=== PATIENT | male | born 1965 ===

== ENCOUNTER 2019-07-14 21:19 | Inpatient (IN) ==
[2019-07-14] MEDS ORDERED: GLUCAGON 1 MG VIAL IM PRN (22:58)
[2019-07-14] MEDS ORDERED: DEXTROSE 10% 250 ML BAG IV PRN (22:58)
[2019-07-14] MEDS ORDERED: ACETAMINOPHEN 325 MG TABLET PO PRN (22:58)
[2019-07-14] MEDS ORDERED: ONDANSETRON 4 MG/2 ML VIAL IV PRN (22:58)
[2019-07-14] MEDS ORDERED: guaiFENesin/CODEINE 5 ML LIQUID PO PRN (23:56)
[2019-07-14] MEDS ORDERED: HYDROCORTISONE 1% CREAM 28 GM TUBE TOP PRN (23:56)
[2019-07-14] MEDS ORDERED: CYCLOBENZAPRINE 10 MG TABLET PO PRN (23:56)
[2019-07-14] MEDS ORDERED: MAGNESIUM HYDROXIDE SUSP 30 ML UDCUP PO PRN (23:56)
[2019-07-14] MEDS ORDERED: FLUTICASONE 50 MCG NASAL SPRAY 16 GM BOTTLE BOTH NARES PRN (23:56)
[2019-07-14] MEDS ORDERED: POLYETHYLENE GLYCOL POWDER 17 GM PACK PO PRN (23:56)
[2019-07-15] MEDS ORDERED: ENOXAPARIN 40 MG/0.4 ML SYRINGE SUBCUT SCH (01:00)
[2019-07-15] MEDS: ALBUTEROL INHALER 18 GM INH SCH ×4 (02:20→21:53)
[2019-07-15 06:24] LABS: Basophils % 0.3 % (0.0-0.8); Hematocrit 44.6 VOL% (42.0-52.0); Hemoglobin 14.9 GM/DL (14.0-18.0); Immature Granulocytes % 0.3 %; Immature Granulocytes Absolute 0.02 #; Mean Corpuscular HGB Conc 33.4 GM/DL (32-36); Mean Corpuscular Volume 82.4 FL (87-102); Mean Platelet Volume 9.1 FL (9.6-12.0); Neutrophils % 80.4 % (38.7-73.9); Platelet Count 248 T/CUMM (130-400); Red Blood Count 5.41 MC/CUMM (3.8-5.5); Red Cell Distribution Width 13.4 % (9.3-17.3); White Blood Count 7.1 T/CUMM (4-12)
[2019-07-15 06:52] LABS: Albumin 3.2 G/DL (3.4-5.0); Bilirubin,Total 0.6 MG/DL (0.2-1.0); Calcium 8.6 MG/DL (8.5-10.1); Osmolality,Calculated 252.4 MOS/KG (273-304); Total Protein 8.3 G/DL (6.4-8.3)
[2019-07-15 06:55] LABS: ABG Base Excess -1.4 MMOL/L (-2.5-2.5); ABG HCO3 23.2 MMOL/L (20-26); ABG Oxygen Saturation 96.7 % (95-100); ABG PCO2 31.5 MM HG (35-48); ABG PH 7.444 (7.35-7.45); ABG PO2 87.1 MM HG (80-95); ABG TCO2 18.6 MMOL/L (23-27); Allen Test Positive
[2019-07-15 07:15] LABS: Band Neutrophils 4 % (0-10); Eosinophils 1 % (0-10); Lymphocytes 12 % (20-55); Platelet Estimate Normal; Segmented Neutrophils 78 % (50-85); Total Cells Counted 100
[2019-07-15 07:16] LABS: Hypochromasia Slight
[2019-07-15 07:49] LABS: Ferritin 2165.8 ng/ml (26-388)
[2019-07-15] MEDS: INSULIN REGULAR 100 UNIT/ML SUBCUT SCH ×4 (08:22→21:57)
[2019-07-15] MEDS: LUBIPROSTONE 24 MCG CAPSULE PO SCH ×2 (08:22→21:54)
[2019-07-15] MEDS: MONTELUKAST 10 MG TABLET PO SCH (08:23)
[2019-07-15] MEDS: HYDROXYCHLOROQUINE 200 MG TABLET PO SCH ×2 (08:23→21:54)
[2019-07-15] MEDS: CALCIUM (CARBONATE)/VITAMIN D 600 MG-400 UNIT TABLET PO SCH ×2 (08:23→21:57)
[2019-07-15] MEDS: ASPIRIN EC 81 MG TABLET PO SCH (08:25)
[2019-07-15] MEDS: ZINC SULFATE 220 MG CAPSULE PO SCH (08:25)
[2019-07-15] MEDS: AZELASTINE NASAL 137 MCG/SPRAY 30 ML BOTTLE BOTH NARES SCH (08:25)
[2019-07-15] MEDS: lisinopriL 5 MG TABLET PO SCH (08:25)
[2019-07-15] MEDS ORDERED: NON-FORMULARY MEDICATION (Omeprazole 20 MG) PO SCH (09:00)
[2019-07-15] MEDS ORDERED: PANTOPRAZOLE 40 MG TABLET PO SCH (09:00)
[2019-07-15] MEDS ORDERED: SODIUM CHLORIDE 0.9% 1,000 ML IV SCH (11:30)
[2019-07-15] MEDS ORDERED: TRIAMTERENE/HCTZ 37.5-25 MG TABLET PO SCH (12:00)
[2019-07-15 14:03] LABS: Calcium 8.5 MG/DL (8.5-10.1); Osmolality,Calculated 254.6 MOS/KG (273-304)
[2019-07-15] MEDS: METOPROLOL TARTRATE 25 MG TABLET PO SCH ×2 (14:35→21:54)
[2019-07-15] MEDS ORDERED: AMITRIPTYLINE 10 MG TABLET PO SCH (21:00)
[2019-07-15] MEDS ORDERED: METOPROLOL TARTRATE 25 MG TABLET PO SCH (21:00)
[2019-07-15] MEDS: SIMVASTATIN 40 MG TABLET PO SCH (21:54)
[2019-07-15] MEDS: ENOXAPARIN 60 MG/0.6 ML SYRINGE SUBCUT SCH (21:58)
[2019-07-16] MEDS: AZELASTINE NASAL 137 MCG/SPRAY 30 ML BOTTLE BOTH NARES SCH ×3 (00:15→21:19)
[2019-07-16] MEDS: ALBUTEROL INHALER 18 GM INH SCH ×4 (00:16→21:18)
[2019-07-16 06:34] LABS: Basophils % 0.2 % (0.0-0.8); Hemoglobin 13.6 GM/DL (14.0-18.0); Immature Granulocytes % 0.5 %; Immature Granulocytes Absolute 0.04 #; Lymphocytes # 1.4 10*3/uL (1.4-4.0); Lymphocytes % 16.9 % (21.2-54.2); Mean Corpuscular Volume 81.8 FL (87-102); Mean Platelet Volume 9.6 FL (9.6-12.0); Monocytes % 7.6 % (1.7-12.7); Neutrophils % 74.8 % (38.7-73.9); Platelet Count 219 T/CUMM (130-400); Red Blood Count 4.89 MC/CUMM (3.8-5.5); Red Cell Distribution Width 13.5 % (9.3-17.3); White Blood Count 8.1 T/CUMM (4-12)
[2019-07-16 07:06] LABS: Calcium 8.6 MG/DL (8.5-10.1); Ferritin 694.1 ng/ml (26-388); Osmolality,Calculated 253.8 MOS/KG (273-304)
[2019-07-16] MEDS ORDERED: TRIAMTERENE/HCTZ 37.5-25 MG TABLET PO SCH (09:00)
[2019-07-16] MEDS ORDERED: SODIUM CHLORIDE 0.9% 1,000 ML IV SCH (09:30)
[2019-07-16] MEDS: ENOXAPARIN 60 MG/0.6 ML SYRINGE SUBCUT SCH ×2 (09:42→21:18)
[2019-07-16] MEDS: INSULIN REGULAR 100 UNIT/ML SUBCUT SCH ×4 (09:43→21:18)
[2019-07-16] MEDS: ZINC SULFATE 220 MG CAPSULE PO SCH (09:43)
[2019-07-16] MEDS: MONTELUKAST 10 MG TABLET PO SCH (09:44)
[2019-07-16] MEDS: LUBIPROSTONE 24 MCG CAPSULE PO SCH ×2 (09:44→21:18)
[2019-07-16] MEDS: HYDROXYCHLOROQUINE 200 MG TABLET PO SCH ×2 (09:44→21:19)
[2019-07-16] MEDS: lisinopriL 5 MG TABLET PO SCH (09:44)
[2019-07-16] MEDS: METOPROLOL TARTRATE 25 MG TABLET PO SCH ×2 (09:44→21:19)
[2019-07-16] MEDS: CALCIUM (CARBONATE)/VITAMIN D 600 MG-400 UNIT TABLET PO SCH ×2 (09:44→21:18)
[2019-07-16] MEDS: ASPIRIN EC 81 MG TABLET PO SCH (09:45)
[2019-07-16] MEDS ORDERED: SODIUM CHLORIDE 0.9% 500 ML IV ONE (10:30)
[2019-07-16] MEDS: INSULIN GLARGINE 100 UNIT/ML SUBCUT SCH (17:00)
[2019-07-16 17:07] LABS: Calcium 8.1 MG/DL (8.5-10.1); Osmolality,Calculated 265.4 MOS/KG (273-304)
[2019-07-16] MEDS: SODIUM CHLORIDE 0.9% 1,000 ML IV SCH (17:58)
[2019-07-16] MEDS: SIMVASTATIN 40 MG TABLET PO SCH (21:19)
[2019-07-16] MEDS: AMITRIPTYLINE 10 MG TABLET PO SCH (21:19)
[2019-07-17] MEDS: ALBUTEROL INHALER 18 GM INH SCH ×4 (00:58→20:46)
[2019-07-17 07:01] LABS: Basophils % 0.2 % (0.0-0.8); Hematocrit 36.8 VOL% (42.0-52.0); Hemoglobin 12.5 GM/DL (14.0-18.0); Immature Granulocytes % 0.5 %; Immature Granulocytes Absolute 0.03 #; Lymphocytes # 0.8 10*3/uL (1.4-4.0); Lymphocytes % 12.5 % (21.2-54.2); Mean Corpuscular Volume 80.9 FL (87-102); Mean Platelet Volume 9.8 FL (9.6-12.0); Monocytes % 4.9 % (1.7-12.7); Neutrophils % 81.9 % (38.7-73.9); Platelet Count 212 T/CUMM (130-400); Red Blood Count 4.55 MC/CUMM (3.8-5.5); Red Cell Distribution Width 13.6 % (9.3-17.3); White Blood Count 6.6 T/CUMM (4-12)
[2019-07-17 07:40] LABS: Calcium 7.9 MG/DL (8.5-10.1); Ferritin 826.7 ng/ml (26-388); Osmolality,Calculated 255.8 MOS/KG (273-304)
[2019-07-17] MEDS: INSULIN REGULAR 100 UNIT/ML SUBCUT SCH ×4 (09:37→20:47)
[2019-07-17] MEDS: METOPROLOL TARTRATE 25 MG TABLET PO SCH ×2 (09:38→20:47)
[2019-07-17] MEDS: HYDROXYCHLOROQUINE 200 MG TABLET PO SCH ×2 (09:38→20:47)
[2019-07-17] MEDS: ZINC SULFATE 220 MG CAPSULE PO SCH (09:38)
[2019-07-17] MEDS: ENOXAPARIN 60 MG/0.6 ML SYRINGE SUBCUT SCH ×2 (09:38→20:46)
[2019-07-17] MEDS: AZELASTINE NASAL 137 MCG/SPRAY 30 ML BOTTLE BOTH NARES SCH ×2 (09:38→20:48)
[2019-07-17] MEDS: INSULIN GLARGINE 100 UNIT/ML SUBCUT SCH (09:38)
[2019-07-17] MEDS: CALCIUM (CARBONATE)/VITAMIN D 600 MG-400 UNIT TABLET PO SCH ×2 (09:38→20:48)
[2019-07-17] MEDS: LUBIPROSTONE 24 MCG CAPSULE PO SCH ×2 (09:38→20:47)
[2019-07-17] MEDS: MONTELUKAST 10 MG TABLET PO SCH (09:38)
[2019-07-17] MEDS: ASPIRIN EC 81 MG TABLET PO SCH (09:38)
[2019-07-17] MEDS: lisinopriL 5 MG TABLET PO SCH (09:38)
[2019-07-17] MEDS: SODIUM CHLORIDE 0.9% 1,000 ML IV SCH (15:56)
[2019-07-17] MEDS: SIMVASTATIN 40 MG TABLET PO SCH (20:48)
[2019-07-17] MEDS: AMITRIPTYLINE 10 MG TABLET PO SCH (20:48)
[2019-07-18] MEDS: ALBUTEROL INHALER 18 GM INH SCH ×3 (00:18→12:56)
[2019-07-18 06:57] LABS: Basophils % 0.2 % (0.0-0.8); Hematocrit 37.9 VOL% (42.0-52.0); Hemoglobin 12.8 GM/DL (14.0-18.0); Immature Granulocytes % 0.5 %; Immature Granulocytes Absolute 0.03 #; Lymphocytes # 0.7 10*3/uL (1.4-4.0); Lymphocytes % 11.8 % (21.2-54.2); Mean Corpuscular HGB Conc 33.8 GM/DL (32-36); Mean Platelet Volume 9.9 FL (9.6-12.0); Neutrophils % 80.5 % (38.7-73.9); Platelet Count 245 T/CUMM (130-400); Red Blood Count 4.68 MC/CUMM (3.8-5.5); Red Cell Distribution Width 13.5 % (9.3-17.3)
[2019-07-18 07:21] LABS: Calcium 8.3 MG/DL (8.5-10.1); Osmolality,Calculated 254.8 MOS/KG (273-304)
[2019-07-18] MEDS: MONTELUKAST 10 MG TABLET PO SCH (08:50)
[2019-07-18] MEDS: CALCIUM (CARBONATE)/VITAMIN D 600 MG-400 UNIT TABLET PO SCH (08:50)
[2019-07-18] MEDS: ASPIRIN EC 81 MG TABLET PO SCH (08:50)
[2019-07-18] MEDS: METOPROLOL TARTRATE 25 MG TABLET PO SCH (08:50)
[2019-07-18] MEDS: lisinopriL 5 MG TABLET PO SCH (08:50)
[2019-07-18] MEDS: LUBIPROSTONE 24 MCG CAPSULE PO SCH (08:50)
[2019-07-18] MEDS: HYDROXYCHLOROQUINE 200 MG TABLET PO SCH (08:50)
[2019-07-18] MEDS: AZELASTINE NASAL 137 MCG/SPRAY 30 ML BOTTLE BOTH NARES SCH (08:50)
[2019-07-18] MEDS: ENOXAPARIN 60 MG/0.6 ML SYRINGE SUBCUT SCH (08:52)
[2019-07-18] MEDS: INSULIN REGULAR 100 UNIT/ML SUBCUT SCH ×3 (10:00→17:46)
[2019-07-18] MEDS: INSULIN GLARGINE 100 UNIT/ML SUBCUT SCH (10:03)
[2019-07-18] MEDS: SODIUM CHLORIDE 0.9% 1,000 ML IV SCH (10:03)
[2019-07-18 18:26] VITALS: BP 108/71
== END 2019-07-18 17:35 | disposition home or self-care (01) | DRG 177 ==
LOC: EDBD 22:56 → SUATTDRO 22:56 → OBSVTOIN 22:56 → INTOOBSV 22:56 → N.CC 22:56 → N.2W 07-15 20:41
PROVIDERS: ADMIT Internal Medicine; ATTEND Hospitalist